=== PATIENT | female | born 2000 | race Caucasian/White ===

== ENCOUNTER 2022-12-11 15:15 | Emergency (ER) | payer OTHER ==
[2022-12-11 15:39] VITALS: PULSE 83; TEMP 97; O2SAT 98
[2022-12-11 16:43] VITALS: BP 117/79
--- NOTE | 2022-12-11 17:02 | ERPHSYRPT ---
- History of Present Illness Time Seen by Provider: 12/11/22 16:57 Source: patient Exam Limitations: no limitations Patient Subjective Stated Complaint: PT HERE FOR NUMBNESS AND OCC PAIN TO LEFT ARM FROM BICEP TO FINGERS FOR A COUPLE DAYS NOW, DENIES INJURY Triage Nursing Assessment: PT ALERT, WALKED IN, RESP EASY, SKIN W/D/P, MOVES LEFT ARM WELL, NO SWELLING OR BRUISING NOTED, Physician History: Patient is a 22-year-old white female who presents with a complaint of intermittent numbness in her arm from the shoulder to the hand. She denies any chest pain but is concerned because of her family history.There is no report of any injury. There is full range of motion. Occurred: days ago (3) Quality: other (Numbness) Severity of Pain-Max: none Severity of Pain-Current: none Extremities Pain Location: shoulder: left, elbow: left, wrist: left, hand: left (Numbness) Modifying Factors: Improves With: nothing Associated Symptoms: none Allergies/Adverse Reactions: divalproex sodium [From Depakote] Adverse Reaction (Verified 12/11/22 15:40) Home Medications: Ethosuximide [Zarontin] 250 mg PO BID 12/11/22 [History] Hx Tetanus, Diphtheria Vaccination/Date Given: No Hx Influenza Vaccination/Date Given: No Hx Pneumococcal Vaccination/Date Given: No Immunizations Up to Date: Yes Travel Risk - International Travel Have you traveled outside of the country in past 3 weeks: No - Coronavirus Screening Are you exhibiting any of the following symptoms?: No Close contact with a COVID-19 positive Pt in past 14-21 Days: No - Vaccine Status Have you recieved a Covid-19 vaccination: No - Review of Systems Constitutional: No Fever, No Chills Eyes: No Symptoms Ears, Nose, & Throat: No Symptoms Respiratory: No Cough, No Dyspnea Cardiac: No Chest Pain, No Edema, No Syncope Abdominal/Gastrointestinal: No Abdominal Pain, No Nausea, No Vomiting, No Diarrhea Genitourinary Symptoms: No Dysuria Musculoskeletal: No Back Pain, No Neck Pain Skin: No Rash Neurological: Parasthesia, No Dizziness, No Focal Weakness, No Sensory Changes Psychological: No Symptoms Endocrine: No Symptoms All Other Systems: Reviewed and Negative - Past Medical History Pertinent Past Medical History: Yes Neurological History: Seizures Respiratory History: Other GI Medical History: GERD, Hernia Other Medical History: COVID-19 in October 2021 - Past Surgical History Past Surgical History: Yes Gastrointestinal: Hernia Repair - Social History Smoking Status: Never smoker How long have you smoked: 2 years Exposure to second hand smoke: No Drug Use: marijuana Patient Lives Alone: Yes - Female History Hx Last Menstrual Period: Nov Now: No - Nursing Vital Signs Nursing Vital Signs: Initial Vital Signs Temperature 97.0 F 12/11/22 15:37 Pulse Rate 83 12/11/22 15:37 Respiratory Rate 18 12/11/22 15:37 Blood Pressure 131/88 12/11/22 15:37 O2 Sat by Pulse Oximetry 98 12/11/22 15:37 Pain Scale Pain Intensity 7 - Physical Exam General Appearance: alert Eyes, Ears, Nose, Throat Exam: moist mucous membranes Neck Exam: non-tender, supple Cardiovascular/Respiratory Exam: chest non-tender, normal breath sounds, regular rate/rhythm, no respiratory distress Abdominal Exam: non-tender, No guarding Back Exam: normal inspection, No vertebral tenderness Shoulder Exam: normal inspection, non-tender Elbow/Forearm Exam: normal inspection, non-tender Wrist Exam: normal inspection, non-tender Hand Exam: normal inspection, non-tender Neuro/Tendon Exam: normal sensation, normal motor functions Mental Status Exam: alert, oriented x 3, cooperative Skin Exam: normal color, warm, dry SpO2 Interpretation: normal SpO2: 98 O2 Delivery: Room Air - Course Nursing assessment & vital signs reviewed: Yes - Radiology Exams Shoulder X-ray Interpretation: Interpreted by me, Reviewed by me, Negative Elbow X-ray Interpretation: Interpreted by me, Reviewed by me, Negative Wrist X-ray Interpretation: Interpreted by me, Reviewed by me, Negative C-Spine X-ray Interpretation: Interpreted by me, Reviewed by me, Negative Ordered Tests: Active Orders 24 hr Category Date Time Status CERVICAL SPINE MINIMUM 4 VIEWS Stat Exams 12/11/22 15:39 Taken ELBOW (MINIMUM 3 VIEWS) Stat Exams 12/11/22 15:39 Taken SHOULDER Stat Exams 12/11/22 15:40 Taken WRIST (MIN 3 VIEWS) Stat Exams 12/11/22 15:39 Taken - Progress Progress: unchanged Medical Desision Making - Diagnostic Testing Radiological Interpretation: Interpreted by me, Reviewed by me - Risk of complications Low Risk: Low risk of morbidity from additional dx testing or treatment - Departure Departure Disposition: Home Clinical Impression: Paresthesias Condition: Stable Critical Care Time: No Referrals: GUERA WEBER DO [NON-STAFF PHY W/O PRIVILEGES] - Follow up/PCP as directed Additional Instructions: Patient encouraged to follow-up with her neurologist
[2022-12-11 17:15] VITALS: RESP 16
--- NOTE | 2022-12-11 19:41 | XRAY ---
Indication: Pain. No known injury. Comparison: None 3 view left wrist demonstrates normal bones, articulation, and soft tissues for patient's age.
--- NOTE | 2022-12-11 19:41 | XRAY ---
Indication: Pain. No known injury. Comparison: None 3 view left shoulder demonstrates normal bones, articulation, and soft tissues for patient's age.
--- NOTE | 2022-12-11 19:41 | XRAY ---
Indication: Left shoulder pain. No known injury. Comparison: None 5 view cervical spine demonstrates lordotic straightening, positional versus paraspinal spasm. No other bony, articular, or soft tissue abnormalities.
--- NOTE | 2022-12-11 19:42 | XRAY ---
Indication: Pain. No known injury. Comparison: None 3 view left elbow demonstrates normal bones, articulation, and soft tissues for patient's age.
== END 2022-12-11 17:15 | disposition home or self-care (01) ==
LOC: ED 15:15
DX: R20.2 Paresthesia of skin (principal); Z79.899 Other long term (current) drug therapy; Z28.310 Unvaccinated for COVID-19; Z86.16 Personal history of COVID-19
CPT/HCPCS: 72050; 73030; 73080; 73110; 99283